=== PATIENT | male | born 1960 | race Caucasian/White ===

== ENCOUNTER 2018-02-23 08:59 | Emergency (ER) | payer OTHER ==
[~2018-02-23] VITALS: Ht 189.2 cm; Wt 120.2 kg
[~2018-02-23 08:59] MED LIST: ACET325T9 PO; FLUO40CA9 PO; LISI1TAB5 PO; MIRT30TA PO; SIMV20TA3 PO; SULF1TAB24 PO
[2018-02-23 09:10] VITALS: BP 157/82
--- NOTE | 2018-02-23 09:53 | PHYS DOC ---
Past Medical History Past Medical History: Anxiety, Depression, High Cholesterol, Hypertension Past Surgical History: Other Additional Past Surgical Histo: umbilcal hernia repair Alcohol Use: Sober Drug Use: Marijuana Adult General Chief Complaint Chief Complaint: DRESSING CHANGE HPI HPI Patient is a 57 year old male with history of high cholesterol, hypertension, anxiety and depression who presents today for dressing change, patient states he had an abscess drained and packed on the left groin yesterday at [facility] and was instructed to have the dressing changed done today. Patient states he was informed he also has MRSA. He states they ordered antibiotics for him but he has not filled the prescription yet. Denies any fever. Review of Systems Review of Systems Constitutional: Denies fever or chills [] Musculoskeletal: Denies back pain or joint pain [] Integument: Reports wound to the left groin Neurologic: Denies headache, focal weakness or sensory changes [] All other systems were reviewed and found to be within normal limits, except as documented in this note. Allergies Allergies Allergies Coded Allergies Type Severity Reaction Last Updated Verified morphine Allergy Mild 06/27/15 Yes Physical Exam Physical Exam Constitutional: Well developed, well nourished, no acute distress, non-toxic appearance. [] Skin: Warm, dry, and left groin with an open wound approximately 2 cm long with no drainage. There is surrounding erythema, the area is warm tender to touch no fluctuance. [] Back: No tenderness, no CVA tenderness. [] Extremities: No tenderness, no cyanosis, no clubbing, ROM intact, no edema. [] Neurologic: Alert and oriented X 3, normal motor function, normal sensory function, no focal deficits noted. [] Psychologic: Affect normal, judgement normal, mood normal. [] EKG EKG [] Radiology/Procedures Radiology/Procedures [] Course & Med Decision Making Course & Med Decision Making Pertinent Labs and Imaging studies reviewed. (See chart for details) This is a 57-year-old male patient presenting to the ED today for wound check and dressing change to the left groin. He had an abscess that was drained yesterday. The wound was repacked by me. Encouraged patient to fill his prescription for antibiotics. Tetanus is up-to-date. Follow-up with primary care doctor in 2 days. Dragon Disclaimer Dragon Disclaimer This electronic medical record was generated, in whole or in part, using a voice recognition dictation system. Departure Departure Impression: Primary Impression: Visit for wound check Disposition: HOME, SELF-CARE Condition: STABLE Referrals: YASH CHAPMAN CRNA (PCP) follow up in 1 week Patient Instructions: Wound Check Additional Instructions: You were evaluated in the emergency room, your left groin abscess was packed. Keep the area clean and dry. Remove the packing in 2 days. After that you can leave the wound open to air. Please take the antibiotics you got from [facility] until they're completed. Follow-up with your own doctor in 2 days. Come back to the ED at any point symptoms worsen. ALEJANDRO PIKE APRN Feb 23, 2018 09:53
== END 2018-02-23 10:30 | disposition home or self-care (01) ==
LOC: ER 08:59
DX: S31.104D Unspecified open wound of abdominal wall, left lower quadrant without penetration into peritoneal cavity, subsequent encounter (principal); E78.00 Pure hypercholesterolemia, unspecified; I10 Essential (primary) hypertension; Z98.890 Other specified postprocedural states; Z88.5 Allergy status to narcotic agent; X58.XXXD Exposure to other specified factors, subsequent encounter
CPT/HCPCS: 99283

== ENCOUNTER 2021-04-08 17:50 | Emergency (ER) | payer MEDICAID, MEDICARE, OTHER ==
[~2021-04-08] VITALS: Ht 188 cm; Wt 126.3 kg
[~2021-04-08 17:50] MED LIST changes: +LISI1TAB37 PO; -LISI1TAB5 PO; +MIRT-34 PO; -MIRT30TA PO; +SIMV20TA18 PO; -SIMV20TA3 PO
[2021-04-08 18:42] VITALS: BP 167/95
--- NOTE | 2021-04-08 19:49 | RAD ---
Lumbar spine 3 views. HISTORY: Pain after a fall. 3 views were taken of the lumbar spine. There is a transitional vertebra at the lumbosacral junction with lumbar appearance on the left and sacral appearance on the right. Th ere is disc space narrowing in the lower lumbar spine. There is no acute fracture. IMPRESSION: 1. Degenerative disc disease in lower lumbar spine. 2. No acute fracture. Electronically signed by: Aren Bonner MD (04/08/2021 7:46 PM) [facility]
[2021-04-08] MEDS ORDERED: HYDR-2761 PO (21:20)
[2021-04-08] MEDS ORDERED: CYCL10TA2 PO (21:20)
--- NOTE | 2021-04-08 21:21 | PHYS DOC ---
Past Medical History Past Medical History: Anxiety, Depression, High Cholesterol, Hypertension Additional Past Medical Histor: MRSA Past Surgical History: Other Additional Past Surgical Histo: HERNIA Smoking Status: Current Every Day Smoker Alcohol Use: Occasionally Drug Use: Marijuana General Adult EDM: Chief Complaint: BACK INJURY HPI: HPI: Patient is a 60 year old male who presents the ED today complaining of 8 out of 10 left low back pain that began on Thursday after she fell off a treadmill at the [facility]. Patient describes the pain as sharp and intermittent. He states the pain radiates to bilateral lower extremities though he states he has history of chronic low back pain with sciatica. Patient denies any loss of bowel/bladder function. Reports numbness and tingling today left lower extremity which is also chronic. Review of Systems: Review of Systems: Constitutional: Denies fever or chills. [] GI: Denies abdominal pain, nausea, vomiting, bloody stools or diarrhea. [] : Denies dysuria. [] Musculoskeletal: Reports low back pain Integument: Denies rash. [] Neurologic: Denies headache, focal weakness or sensory changes. [] ] Psychiatric: Denies depression or anxiety. [] Heart Score: C/O Chest Pain: N/A Risk Factors: Risk Factors: DM, Current or recent (<one month) smoker, HTN, HLP, family history of CAD, obesity. Risk Scores: Score 0 - 3: 2.5% MACE over next 6 weeks - Discharge Home Score 4 - 6: 20.3% MACE over next 6 weeks - Admit for Clinical Observation Score 7 - 10: 72.7% MACE over next 6 weeks - Early Invasive Strategies Allergies: Allergies: Allergies Coded Allergies Type Severity Reaction Last Updated Verified morphine Allergy Mild 06/27/15 Yes Physical Exam: PE: Constitutional: Well developed, well nourished, no acute distress, non-toxic appearance. []] Abdomen: Bowel sounds normal, soft, no tenderness, no masses, no pulsatile masses. [] Skin: Warm, dry, no erythema, no rash. [] Back: Overweight patient diffuse paraspinal muscle tenderness to the left lumbar spine, no midline lumbar spine tenderness, no CVA tenderness. [] Extremities: No tenderness, no cyanosis, no clubbing, ROM intact, no edema. [] Neurologic: Alert and oriented X 3, normal motor function, normal sensory function, no focal deficits noted. [] Psychologic: Affect normal, judgement normal, mood normal. [] Current Patient Data: Vital Signs: Vital Signs Date Time Temp Pulse Resp B/P (MAP) Pulse Ox O2 Delivery O2 Flow Rate FiO2 04/08/21 18:42 98.1 61 22 167/95 (119) 96 Room Air 98.1 EKG: EKG: [] Radiology/Procedures: Radiology/Procedures: [PROCEDURE: LUMBAR SPINE 2-3V Lumbar spine 3 views. HISTORY: Pain after a fall. 3 views were taken of the lumbar spine. There is a transitional vertebra at the lumbosacral junction with lumbar appearance on the left and sacral appearance on the right. There is disc space narrowing in the lower lumbar spine. There is no acute fracture. IMPRESSION: 1. Degenerative disc disease in lower lumbar spine. 2. No acute fracture. Electronically signed by: Fadi Haynes MD (04/08/2021 7:46 PM) [facility] DICTATED and SIGNED BY: FADI HAYNES MD DATE: 04/08/21 [id number] Course & Med Decision Making: Course & Med Decision Making Pertinent Labs and Imaging studies reviewed. (See chart for details) This a 60-year-old male patient presented to the ED today with low back pain that began on Thursday after he fell off a treadmill at the [facility]. Lumbar spine x- rays are negative for any acute findings, noted for DJD. Discharge to home. F ollow-up with PCP. No cauda equina syndrome symptoms. Dragon Disclaimer: Dragon Disclaimer: This electronic medical record was generated, in whole or in part, using a voice recognition dictation system. Departure Departure Impression: Primary Impression: Bilateral sciatica Additional Impressions: Fall Qualified Codes: W19.XXXA - Unspecified fall, initial encounter Lumbar contusion Qualified Codes: S30.0XXA - Contusion of lower back and pelvis, initial encounter Disposition: HOME / SELF CARE / HOMELESS Condition: STABLE Referrals: CARLOS VÁZQUEZ D.O. (PCP) Follow-up in 1 week Patient Instructions: Back Pain, Adult, [id number], Sciatica Additional Instructions: You were evaluated in the emergency room for back pain after falling. Your x- rays of the lumbar spine are negative for any acute findings. Please follow-up with your own doctor in 1 to 2 weeks. Scripts Hydrocodone Bit/Acetaminophen (HYDROCODONE-APAP 5-325 ) 1 Tab Tablet 1 TAB PO PRN Q6HRS PRN for PAIN, #6 TAB 0 Refills Prov: ALEJANDRO PIKE APRN 04/08/21 Cyclobenzaprine Hcl (CYCLOBENZAPRINE HCL) 10 Mg Tablet 1 TAB PO TID, #30 TAB Prov: ALEJANDRO PIKE APRN 04/08/21 ALEJANDRO PIKE APRN Apr 08, 2021 21:21
== END 2021-04-08 21:30 | disposition home or self-care (01) ==
LOC: ER 17:50
DX: S30.0XXA Contusion of lower back and pelvis, initial encounter (principal); M54.42 Lumbago with sciatica, left side; M54.41 Lumbago with sciatica, right side; I10 Essential (primary) hypertension; E78.00 Pure hypercholesterolemia, unspecified; Z86.14 Personal history of Methicillin resistant Staphylococcus aureus infection; F17.200 Nicotine dependence, unspecified, uncomplicated; Z88.5 Allergy status to narcotic agent; W17.89XA Other fall from one level to another, initial encounter; Y93.B1 Activity, exercise machines primarily for muscle strengthening; Y92.89 Other specified places as the place of occurrence of the external cause; Y99.8 Other external cause status
CPT/HCPCS: 72100; 99284